=== PATIENT | female | born 1995 | race Caucasian/White ===

== ENCOUNTER 2023-02-03 15:32 | Observation (INO) | payer SELFPAY ==
[~2023-02-03] VITALS: Ht 162.6 cm; Wt 74.4 kg
[2023-02-03] MEDS ORDERED: LACTATED RINGERS 1,000 ML IV SCH (16:30)
[2023-02-03 16:53] LABS: CLARITY URINE CLEAR (CLEAR); COLOR URINE YELLOW (YELLOW); GLUCOSE URINE NEGATIVE (NEGATIVE); KETONES URINE NEGATIVE (NEGATIVE); LEUKOCYTE ESTERASE URINE NEGATIVE (NEGATIVE); NITRITE URINE NEGATIVE (NEGATIVE); OCCULT BLOOD URINE NEGATIVE (NEGATIVE); PH URINE 7.5 (4.5-8.0); PROTEIN URINE NEGATIVE (NEGATIVE); SPECIFIC GRAVITY URINE 1.004 (1.005-1.030); UROBILINOGEN URINE 0.2 E.U./dL (0.2-1.0)
== END 2023-02-03 18:20 | disposition home or self-care (01) ==
LOC: 8 EST LDRP 15:32
PROVIDERS: ADMIT Specialist; ATTEND Specialist
DX: O26.893 Other specified pregnancy related conditions, third trimester (principal); R10.9 Unspecified abdominal pain; O62.9 Abnormality of forces of labor, unspecified; Z3A.30 30 weeks gestation of pregnancy
CPT/HCPCS: 59025; 96360; 96361; 81003; G0378 ×2; 99281